=== PATIENT | female | born 1995 | race Two or more races ===

== ENCOUNTER 2018-06-07 19:09 | Emergency (ER) | payer SELFPAY ==
[2018-06-07] MEDS ORDERED: OXYCODONE-ACETAMINOPHEN 5-325 MG TABLET PO ONE (20:23)
[2018-06-07] MEDS ORDERED: ONDANSETRON 4 MG TAB.RAPDIS PO ONE (20:23)
--- NOTE | 2018-06-07 20:26 | ER Document Report ---
ED General - General Chief Complaint: Abscess Stated Complaint: HIP PAIN Time Seen by Provider: 06/07/18 20:11 Notes: Patient is a 22-year-old female that comes to the emergency department for chief complaint of a painful area over her left hip/pelvis. She states there is a hardened area that feels like a growth that has been there noticeably since last January, she states on she went to an emergency department in [place], had a CAT scan and an MRI, was told that she "might have cancer" and she has an orthopedic follow-up scheduled next month in [place]. She is up here visiting her active duty significant other. She states that she came in because the pain is severe frequently and she is having trouble sleeping because of it. She denies weight loss, fever or chills, other locations of pain. She takes no daily medications except she was prescribed tramadol and she takes ibuprofen. Only past surgical history reported is appendectomy. TRAVEL OUTSIDE OF THE [place] IN LAST 30 DAYS: No - Related Data Allergies/Adverse Reactions: No Known Allergies Allergy (Verified 06/07/18 19:09) Past Medical History - General Information source: Patient - Social History Smoking Status: Never Smoker Frequency of alcohol use: Occasional Drug Abuse: None Lives with: Family Family History: Reviewed & Not Pertinent - Medical History Medical History: Negative Past Surgical History: Reports: Hx Appendectomy - Immunizations Immunizations up to date: Yes Hx Diphtheria, Pertussis, Tetanus Vaccination: Yes Review of Systems - Review of Systems Constitutional: No symptoms reported EENT: No symptoms reported Cardiovascular: No symptoms reported Respiratory: No symptoms reported Gastrointestinal: No symptoms reported Genitourinary: No symptoms reported Female Genitourinary: No symptoms reported Musculoskeletal: See HPI Skin: No symptoms reported Hematologic/Lymphatic: No symptoms reported Neurological/Psychological: No symptoms reported Physical Exam - Vital signs Vitals: Temp Pulse Resp BP Pulse Ox 98.3 F 109 H 17 130/82 H 100 06/07/18 19:13 06/07/18 19:13 06/07/18 19:13 06/07/18 19:13 06/07/18 19:13 - Notes Notes: GENERAL: Alert, interacts well. No acute distress. HEAD: Normocephalic, atraumatic. EYES: Pupils equal, round, and reactive to light. Extraocular movements intact. ENT: Oral mucosa moist, tongue midline. Oropharynx unremarkable. Airway patent. Nares patent, no nasal septal hematoma, TM's intact. NECK: Full range of motion. Supple. Trachea midline. LUNGS: Clear to auscultation bilaterally, no wheezes, rales, or rhonchi. No respiratory distress. HEART: Regular rate and rhythm. No murmur ABDOMEN: Soft, non-tender. Non-distended. Bowel sounds present in all 4 quadrants. There is an area over the left pelvis which appears to have a bony area that is abnormally large, there is no overt tenderness over the area but patient states that the area is where she will frequently have pain. GENITOURINARY: Deferred EXTREMITIES: Moves all 4 extremities spontaneously. No edema, normal radial and dorsalis pedis pulses bilaterally. No cyanosis. BACK: no cervical, thoracic, lumbar midline tenderness. No saddle anesthesia, normal distal neurovascular exam. NEUROLOGICAL: Alert and oriented x3. Normal speech. [cranial nerves II through XII grossly intact]. PSYCH: Normal affect, normal mood. SKIN: Warm, dry, normal turgor. No rashes or lesions noted. Course - Re-evaluation Re-evalutation: On patient's exam the area she is concerned about appears to be bony in nature. Abdomen is benign, neurovascular exam is unremarkable, vital signs unremarkable. Patient afebrile, not losing weight, well-appearing otherwise. Hip exam unremarkable on x-ray, pelvis shows bony growth on the left side consistent with patient's location of discomfort. I discussed with patient, years ago she did have a fall on the same side, this probably initiated the growth. She already has orthopedic follow-up. She states her biggest problem is she cannot sleep because she cannot get comfortable. Provided with Flexeril as a muscle relaxer for this. Discussed expectations, follow-up, and return precautions. Patient states understanding and agreement. Stable at time of discharge. - Vital Signs Vital signs: Temp Pulse Resp BP Pulse Ox 98.7 F 81 18 116/71 100 06/07/18 22:08 06/07/18 22:08 06/07/18 22:08 06/07/18 22:08 06/07/18 22:08 Discharge - Discharge Clinical Impression: Left leg pain, Bony growth Condition: Stable Disposition: HOME, SELF-CARE Additional Instructions: There is an abnormal bony growth over the left pelvis. This probably is abnormal growth caused by an old injury. Because it is causing you symptoms I highly recommend you perform close orthopedic follow-up for management of this. You can continue anti-inflammatory medications, ice to the area, and take the provided muscle relaxer at night to help you sleep. Return for any concerning symptoms including severe swelling, fever, or any other concerning or worsening symptoms. Prescriptions: Cyclobenzaprine HCl [Flexeril 5 mg Tablet] 1 - 2 tab PO TID PRN #30 tablet PRN Reason:
--- NOTE | 2018-06-07 21:15 | RADIOLOGY REPORT (SQ) ---
EXAM DESCRIPTION: XR HIP 2 OR MORE VIEWS COMPLETED DATE/TME: 06/07/2018 20:23 CLINICAL HISTORY: 22 years, Female, hip pain; hard abnormal swelling over hip/pelvis Findings: Bony alignment is anatomic. No fracture or dislocation. 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 IMPRESSION: No acute fracture.
[2018-06-07] MEDS ORDERED: HYDROCODONE/ACETAMINOPHEN 5-325 MG (6 TAB/ER DISP) PO PRN (21:27)
[2018-06-07 22:09] VITALS: BP 116/71
== END 2018-06-07 22:09 | disposition home or self-care (01) ==
LOC: ER 19:09
DX: R19.09 Other intra-abdominal and pelvic swelling, mass and lump (principal); M25.552 Pain in left hip; Z91.81 History of falling
CPT/HCPCS: 99283; 73502; S0119

== ENCOUNTER 2018-07-05 17:18 | Emergency (ER) | payer SELFPAY ==
[2018-07-05 17:43] VITALS: BP 100/70
== END 2018-07-05 18:05 | disposition left against medical advice (07) ==
LOC: ER 17:18
DX: Z53.21 Procedure and treatment not carried out due to patient leaving prior to being seen by health care provider (principal)

== ENCOUNTER 2018-07-05 22:10 | Emergency (ER) | payer SELFPAY ==
[2018-07-05 22:49] VITALS: BP 111/72
[2018-07-06 01:42] LABS: ABSOLUTE EOSINOPHILS # (AUTO) 0.1 10^3/uL (0.0-0.6); ABSOLUTE MONOCYTES (AUTO) 0.5 10^3/uL (0.1-1.4); ABSOLUTE NEUT (AUTO) 3.6 10^3/uL (1.7-8.2); BASOPHILS % (AUTO) 0.5 % (0-2); EOSINOPHILS % (AUTO) 1.3 % (0-6); HEMATOCRIT 40.1 % (36.0-47.0); HEMOGLOBIN 13.5 g/dL (12.0-15.5); LYMPHOCYTES % (AUTO) 32.1 % (13-45); MEAN CORPUSCULAR HGB CONC 33.7 g/dL (32.0-36.0); MEAN CORPUSCULAR VOLUME 89 fl (80-97); PLATELET COUNT 129 10^3/uL (150-450); RED CELL DISTRIBUTION WIDTH 13.7 % (11.5-14.0); SEGMENTED NEUTROPHILS % (AUTO) 58.1 % (42-78); TOTAL CELLS COUNTED % (AUTO) 100 %; WHITE BLOOD COUNT 6.2 10^3/uL (4.0-10.5)
[2018-07-06 01:46] LABS: APPEARANCE,URINE CLOUDY; BILIRUBIN,URINE NEGATIVE (NEGATIVE); COLOR,URINE AMBER; GLUCOSE, URINE NEGATIVE (NEGATIVE); KETONES,URINE TRACE mg/dL (NEGATIVE); LEUKOCYTE ESTERASE,URINE MODERATE (NEGATIVE); NITRITE,URINE POSITIVE (NEGATIVE); PROTEIN,URINE NEGATIVE (NEGATIVE); URINE SPECIFIC GRAVITY 1.019
[2018-07-06 01:53] LABS: ALANINE AMINOTRANSFERASE 37 U/L (9-52); ALBUMIN 4.7 g/dL (3.5-5.0); ALKALINE PHOSPHATASE 54 U/L (38-126); ANION GAP 10 (5-19); ASPARTATE AMINO TRANSFERASE 28 U/L (14-36); BILIRUBIN,DIRECT 0.1 mg/dL (0.0-0.4); BILIRUBIN,TOTAL 0.4 mg/dL (0.2-1.3); BLOOD UREA NITROGEN 9 mg/dL (7-20); CALCIUM 9.8 mg/dL (8.4-10.2); CARBON DIOXIDE 23 mmol/L (22-30); CHLORIDE 106 mmol/L (98-107); GLUCOSE 87 mg/dL (75-110); LIPASE 101.7 U/L (23-300); POTASSIUM 3.7 mmol/L (3.6-5.0); SODIUM 139.1 mmol/L (137-145); TOTAL PROTEIN 7.5 g/dL (6.3-8.2)
--- NOTE | 2018-07-06 03:10 | RADIOLOGY REPORT (SQ) ---
EXAM DESCRIPTION: US TRANSVAGINAL COMPLETED DATE/TME: 07/06/2018 01:28 CLINICAL HISTORY: 22 years, Female, preg, pain COMPARISON: None. TECHNIQUE: Transvaginal images of the pelvis were obtained LIMITATIONS: None. FINDINGS: Uterus measures 8.5 x 4.8 x 4.2 cm. An intrauterine gestational sac is identified that measures approximately 1.0 cm in size. No pole or yolk sac is identified. A 0.3 x 0.2 cm hypoechoic area is seen adjacent to the gestational sac, likely representing a small subchorionic bleed. The right ovary measures 4.2 x 4.0 x 3.8 cm. There is a complex right ovarian cyst with internal echoes which measures 4.0 x 3.6 x 3.2 cm. There is no hypervascular flow within right ovary. The left ovary measures 2.6 x 1.2 x 1.2 cm. No free fluid is detected. IMPRESSION: Intrauterine gestational sac with no pole or yolk sac identified. This is likely due to an early . Recommend follow-up ultrasound and correlation with beta-hCG. Complex right ovarian cyst with no areas of increased vascular flow. copyright 2010 [employer]- All Rights Reserved
== END 2018-07-06 04:00 | disposition left against medical advice (07) ==
LOC: ER 22:10
DX: Z53.21 Procedure and treatment not carried out due to patient leaving prior to being seen by health care provider (principal)
CPT/HCPCS: 36415; 76817; 80053; 81001; 83690; 84702; 85025; 93976